=== PATIENT | male | born 1990 | race Caucasian/White ===

== ENCOUNTER 2020-05-18 04:44 | Emergency (ER) | payer OTHER ==
[~2020-05-18] VITALS: Ht 177.8 cm; Wt 72.6 kg
[2020-05-18] MEDS ORDERED: AMOXICILLIN 50500 MG PO (05:00)
[2020-05-18] MEDS ORDERED: TRAMADOL 50 MG50 MG PO (05:00)
[2020-05-18 05:03] VITALS: BP 149/91
== END 2020-05-18 05:07 | disposition home or self-care (01) ==
LOC: M.ERS 04:44
DX: K02.9 Dental caries, unspecified (principal)